=== PATIENT | female | born 1980 | race Caucasian/White ===

== ENCOUNTER → 2020-08-13 | Outpatient (CLI) | payer OTHER | END | disposition home or self-care (01) | LOC: LABWHC1 08:49 | PROVIDERS: ATTEND Family Medicine | DX: Z03.818 Encounter for observation for suspected exposure to other biological agents ruled out (principal) | CPT/HCPCS: U0003; C9803 ==

== ENCOUNTER 2024-10-21 21:30 | Emergency (ER) | payer OTHER ==
[2024-10-21 21:35] VITALS: RESP 16
[2024-10-21] MEDS: KETOROLAC 15 MG/ML 1 ML VIAL IM STA (22:12)
[2024-10-21] MEDS: methocarbamoL 750 MG TAB PO STA (22:34)
[2024-10-21 22:52] LABS: Appearance,Urine Clear (Clear); Bilirubin,Urine Negative (Negative); Blood,Urine Negative (Negative); Color,Urine Light Yellow; Glucose,Urine (UA) Negative (Negative); Ketones,Urine Negative (Negative); Leukocyte Esterase,Urine Trace (Negative); Mucus,Urine Rare /hpf; Nitrite,Urine Negative (Negative); PH, Urine 5.5 (5.0-8.0); Protein,Urine Negative (Negative); RBC,Urine 2 /hpf (0-5); Specific Gravity,Urine 1.023 (1.001-1.035); Squamous Epithelial Cell,Urine 5 /hpf (0-4); Urobilinogen,Urine <2.0 mg/dL (<2.0); WBC,Urine 2 /hpf (0-5)
--- NOTE | 2024-10-21 23:29 | ED ---
Back Pain HPI - General Chief Complaint: Back Pain/Injury Stated Complaint: Back Pain Time Seen by Provider: 10/21/24 21:37 Source: patient Limitations: no limitations - History of Present Illness Initial Comments: 44-year-old female presents emergency department reporting low back pain. Patient states for the past 2 to 3 days she has had spasms in her lower back. A dmits to chronic back pain however has had worsening symptoms over the past couple of days. Denies any injuries. No saddle anesthesia. No bowel or bladder incontinence. No fevers. No history of intravenous drug use. Patient has not taken anything at home for her pain. No concern for . 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 Denies any urinary symptoms to include dysuria, hematuria or difficulty voiding. Denies diarrhea, constipation, black or bloody stools. No vaginal bleeding or discharge. No other alleviating, precipitating or modifying factors - Related Data Previous Rx's Medication Instructions Recorded diazePAM [Valium] 5 mg PO Q8H PRN 3 Days #9 tab 10/21/24 Allergies Allergy/AdvReac Type Severity Reaction Status Date / Time No Known Allergies Allergy Verified 10/21/24 21:34 Review of Systems ROS Statement: Those systems with pertinent positive or pertinent negative responses have been documented in the HPI. ROS Other: All systems not noted in ROS Statement are negative. Past Medical History Past Medical History: Thyroid Disorder History of Any Multi-Drug Resistant Organisms: None Reported Additional Past Surgical History / Comment(s): Left kidney donated in 2003 Past Psychological History: Anxiety, Depression Smoking Status: Never smoker Past Alcohol Use History: Occasional Past Drug Use History: Marijuana General Exam Limitations: no limitations General appearance: alert, in no apparent distress Head exam: Present: atraumatic, normocephalic, normal inspection Eye exam: Present: normal appearance, PERRL, EOMI. Absent: scleral icterus, conjunctival injection, periorbital swelling ENT exam: Present: normal exam, mucous membranes moist Neck exam: Present: normal inspection. Absent: tenderness, meningismus, lymphadenopathy Respiratory exam: Present: normal lung sounds bilaterally. Absent: respiratory distress, wheezes, rales, rhonchi, stridor Cardiovascular Exam: Present: regular rate, normal rhythm, normal heart sounds. Absent: systolic murmur, diastolic murmur, rubs, gallop, clicks GI/Abdominal exam: Present: soft, normal bowel sounds. Absent: distended, tenderness, guarding, rebound, rigid Extremities exam: Present: normal inspection, full ROM, normal capillary refill. Absent: tenderness, pedal edema, joint swelling, calf tenderness Back exam: Present: paraspinal tenderness (Bilaterally in the lumbar region) Neurological exam: Present: alert, oriented X3, CN II-XII intact Psychiatric exam: Present: normal affect, normal mood Skin exam: Present: warm, dry, intact, normal color. Absent: rash Course Vital Signs 10/21/24 10/21/24 21:31 23:43 Temperature 97.9 F 97.8 F Pulse Rate 81 78 Respiratory 16 16 Rate Blood Pressure 131/81 128/78 O2 Sat by Pulse 100 99 Oximetry Medical Decision Making - Medical Decision Making Was pt. sent in by a medical professional or institution (, PA, BASE BRANDER, urgent care, hospital, or fci...) When possible be specific @ -No Did you speak to anyone other than the patient for history (EMS, parent, family, police, friend...)? What history was obtained from this source @ -No Did you review nursing and triage notes (agree or disagree)? Why? @ -I reviewed and agree with nursing and triage notes Were old charts reviewed (outside hosp., previous admission, EMS record, old EKG, old radiological studies, urgent care reports/EKG's, fci records)? Report findings @ -No old charts were reviewed Differential Diagnosis (chest pain, altered mental status, abdominal pain women, abdominal pain men, vaginal bleeding, weakness, fever, dyspnea, syncope, headache, dizziness, GI bleed, back pain, seizure, CVA, palpatations, mental health, musculoskeletal)? @ -Differential Back Pain: Strain, zoster, cauda equina syndrome, epidural abscess, vertebral osteomyelitis, discitis, fracture, subluxation, disc herniation, DJD, spinal stenosis, dissection, AAA, pancreatitis, peptic ulcer disease, pyelonephritis, kidney stone, this is not meant to be an all-inclusive list. EKG interpreted by me (3pts min.). @ -Not done X-rays interpreted by me (1pt min.). @ -Yes and demonstrates scoliosis CT interpreted by me (1pt min.). @ -None done U/S interpreted by me (1pt. min.). @ -None done What testing was considered but not performed or refused? (CT, X-rays, U/S, labs)? Why? @ -None What meds were considered but not given or refused? Why? @ -None Did you discuss the management of the patient with other professionals (professionals i.e. , PA, BASE BRANDER, lab, RT, psych nurse, director of social work, surveillance monitor, teacher, debt recovery officer, case checker)? Give summary @ -No Was smoking cessation discussed for >3mins.? @ -No Was critical care preformed (if so, how long)? @ -No Were there social determinants of health that impacted care today? How? (Homelessness, low income, unemployed, alcoholism, drug addiction, transportation, low edu. Level, literacy, decrease access to med. care, [facility], rehab)? @ -No Was there de-escalation of care discussed even if they declined (Discuss DNR or withdrawal of care, Hospice)? DNR status @ -No What co-morbidities impacted this encounter? (DM, HTN, Smoking, COPD, CAD, Cancer, CVA, ARF, Chemo, Hep., AIDS, mental health diagnosis, sleep apnea, morbid obesity)? @ -Single kidney due to donation Was patient admitted / discharged? Hospital course, mention meds given and route, prescriptions, significant lab abnormalities, going to OR and other pertinent info. @ -Upon arrival patient seen and evaluated in room 33. Thorough history and physical exam was performed. Patient was given a dose of Toradol and a Robaxin. X-ray was performed. This is performed due to visible deformity on clinical exam which does demonstrate significant scoliosis. Patient has no red flag symptoms. I did discuss treatment options. Patient would prefer to use Valium for muscle relaxation. I did prescribe this for the patient. She must follow- up with her primary care doctor in 2 to 4 days. I did recommend an MRI of her lumbar spine. I also gave her follow-up information for the orthopedic surgeons in [facility] as I do feel that she may need long-term assistance from them. She is to return for any new or worsening symptoms. Patient was agreeable plan was discharged home in stable condition Undiagnosed new problem with uncertain prognosis? @ -No Drug Therapy requiring intensive monitoring for toxicity (Heparin, Nitro, Insulin, Cardizem)? @ -No Were any procedures done? @ -No Diagnosis/symptom? @ -Acute exacerbation of chronic back pain Acute, or Chronic, or Acute on Chronic? @ -Acute on chronic Uncomplicated (without systemic symptoms) or Complicated (systemic symptoms)? @ -Complicated Side effects of treatment? @ -No Exacerbation, Progression, or Severe Exacerbation? @ -No Poses a threat to life or bodily function? How? (Chest pain, [place], [place], pneumonia, PE, COPD, DKA, ARF, appy, cholecystitis, CVA, Diverticulitis, Homicidal, Suicidal, threat to staff... and all critical care pts) @ -No - Lab Data Lab Results 10/21/24 Range/Units 22:44 Urine Color Light Yellow Urine Appearance Clear (Clear) Urine pH 5.5 (5.0-8.0) Ur Specific Hubbard 1.023 (1.001-1.035) Urine Protein Negative (Negative) Urine Glucose (UA) Negative (Negative) Urine Ketones Negative (Negative) Urine Blood Negative (Negative) Urine Nitrite Negative (Negative) Urine Bilirubin Negative (Negative) Urine Urobilinogen <2.0 (<2.0) mg/dL Ur Leukocyte Esterase Trace H (Negative) Urine RBC 2 (0-5) /hpf Urine WBC 2 (0-5) /hpf Ur Squamous Epith Cells 5 H (0-4) /hpf Urine Mucus Rare H (None) /hpf Disposition Clinical Impression: Chronic back pain Disposition: HOME SELF-CARE Condition: Stable Instructions (If sedation given, give patient instructions): Acute Low Back Pain (ED) Additional Instructions: Please use the Valium as needed for back spasms. Take Tylenol as needed for additional pain. Follow-up with one of the Ortho spine surgeons and return for any new or worsening symptoms Prescriptions: diazePAM [Valium] 5 mg PO Q8H PRN 3 Days #9 tab PRN Reason: Muscle Spasm Is patient prescribed a controlled substance at d/c from ED?: Yes When asked, does pt state using other controlled substances?: No If prescribed controlled substance>3 days was MAPS reviewed?: Prescribed <3 Days Referrals: Erum Dawson MD [Primary Care Provider] - 1-2 days Jose Daniel Benton DO [Doctor of Osteopathic Medicine] - 1-2 days Lindsay Brar DO [Doctor of Osteopathic Medicine] - 1-2 days Time of Disposition: 23:28
[2024-10-21] MEDS: diazePAM 5 MG TAB PO STA (23:38)
[2024-10-21 23:44] VITALS: BP 128/78; PULSE 78; TEMP 97.8
--- NOTE | 2024-10-22 00:32 | XR ---
EXAM: XR Lumbosacral Spine, 3 Views CLINICAL HISTORY: back pain TECHNIQUE: Frontal and lateral views of the lumbar spine and sacrum. COMPARISON: No relevant prior studies available. FINDINGS: Vertebrae: Moderate tissue scoliosis with the apex at L2-3. Associated endplate degenerative changes line the inner curvature. No acute fracture. No spondylolisthesis. Sacrum/coccyx: Unremarkable as visualized. No acute fracture. Soft tissues: Unremarkable. IMPRESSION: History of scoliosis with associated degenerative changes greatest lung the inner curvature.
== END 2024-10-21 23:44 | disposition home or self-care (01) ==
LOC: EC 21:30
DX: G89.29 Other chronic pain (principal); M54.50 Low back pain, unspecified; Z90.5 Acquired absence of kidney
CPT/HCPCS: 81001; 72100; 99284; 96372; J1885

== ENCOUNTER 2025-03-29 17:21 | Emergency (ER) | payer OTHER ==
--- NOTE | 2025-03-29 19:04 | US ---
EXAMINATION TYPE: US venous doppler duplex LE RT DATE OF EXAM: 03/29/2025 6:53 PM COMPARISON: NONE CLINICAL INDICATION: Female, 44 years old with history of pain; Pain intermittently x a couple weeks. No hx of DVT. Patient does not take blood thinners. TECHNIQUE: The lower extremity deep venous system is examined utilizing real time linear array sonog dana with graded compression, color doppler sonography, and spectral doppler. SIDE PERFORMED: Right FINDINGS: VESSELS IMAGED: Common Femoral Vein Deep Femoral Vein Greater Saphenous Vein * Femoral Vein Popliteal Vein Small Saphenous Vein * Proximal Calf Veins (* superficial vessels) Right Leg: No evidence of DVT IMPRESSION: No evidence of deep vein thrombosis of the right lower extremity. [facility], , 03/29/2025 7:02 PM
--- NOTE | 2025-03-29 19:27 | ED ---
General Adult HPI - General Chief complaint: Extremity Problem,Nontraumatic Stated complaint: right leg pain Time Seen by Provider: 03/29/25 17:36 Source: patient, RN notes reviewed Mode of arrival: ambulatory Limitations: no limitations - History of Present Illness Initial comments: 44-year-old female presents to the emergency department for evaluation of right leg pain and swelling. Patient states that this been going on for the past 2 weeks. She notes that it is seem to get worse. She notes that there was an area on her leg that felt like a lump. This prompted her presentation to the emergency department today. She denies any redness to the area. Denies any known fever, chills. She is able to ambulate. - Related Data Previous Rx's Medication Instructions Recorded diazePAM [Valium] 5 mg PO Q8H PRN 3 Days #9 tab 10/21/24 Allergies Allergy/AdvReac Type Severity Reaction Status Date / Time No Known Allergies Allergy Verified 03/29/25 17:32 Review of Systems ROS Statement: Those systems with pertinent positive or pertinent negative responses have been documented in the HPI. ROS Other: All systems not noted in ROS Statement are negative. Past Medical History Past Medical History: Thyroid Disorder History of Any Multi-Drug Resistant Organisms: None Reported Additional Past Surgical History / Comment(s): Left kidney donated in 2003 Past Psychological History: Anxiety, Depression Smoking Status: Never smoker Past Alcohol Use History: Occasional Past Drug Use History: Marijuana General Exam Limitations: no limitations General appearance: alert, in no apparent distress Head exam: Present: atraumatic, normocephalic, normal inspection Eye exam: Present: normal appearance, PERRL, EOMI. Absent: scleral icterus, conjunctival injection, periorbital swelling ENT exam: Present: normal exam, mucous membranes moist Respiratory exam: Present: normal lung sounds bilaterally. Absent: respiratory distress, wheezes, rales, rhonchi, stridor Cardiovascular Exam: Present: regular rate, normal rhythm, normal heart sounds. Absent: systolic murmur, diastolic murmur, rubs, gallop, clicks Extremities exam: Present: normal inspection, full ROM, normal capillary refill. Absent: tenderness, pedal edema, joint swelling, calf tenderness Back exam: Present: normal inspection Neurological exam: Present: alert, oriented X3 Psychiatric exam: Present: normal affect, normal mood Skin exam: Present: warm, dry, intact, normal color. Absent: rash Course Vital Signs 03/29/25 03/29/25 17:29 19:33 Temperature 98.2 F 98.6 F Pulse Rate 100 103 H Respiratory 16 18 Rate Blood Pressure 131/77 117/75 O2 Sat by Pulse 99 97 Oximetry Medical Decision Making - Medical Decision Making Was pt. sent in by a medical professional or institution (, PA, WET MACHINE OPERATOR, urgent care, hospital, or assisted...) When possible be specific @ -No Did you speak to anyone other than the patient for history (EMS, parent, family, police, friend...)? What history was obtained from this source @ -No Did you review nursing and triage notes (agree or disagree)? Why? @ -I reviewed and agree with nursing and triage notes Were old charts reviewed (outside hosp., previous admission, EMS record, old EKG, old radiological studies, urgent care reports/EKG's, assisted records)? Report findings @ -No old charts were reviewed Differential Diagnosis (chest pain, altered mental status, abdominal pain women, abdominal pain men, vaginal bleeding, weakness, fever, dyspnea, syncope, headache, dizziness, GI bleed, back pain, seizure, CVA, palpatations, mental health, musculoskeletal)? @ -Differential Musculoskeletal Muscular strain, contusion, ligament sprain, fracture, arthritis, septic arthritis, bursitis, cellulitis, muscle spasm, nerve compression, DVT, arterial occlusion, herpes zoster, electrolyte abnormality, tumor.... This is not meant to be in all inclusive list EKG interpreted by me (3pts min.). @ -None X-rays interpreted by me (1pt min.). @ -None done CT interpreted by me (1pt min.). @ -None done U/S interpreted by me (1pt. min.). @ -Ultrasound of the right lower extremity shows no evidence of DVT What testing was considered but not performed or refused? (CT, X-rays, U/S, labs)? Why? @ -None What meds were considered but not given or refused? Why? @ -None Did you discuss the management of the patient with other professionals (professionals i.e. , PA, WET MACHINE OPERATOR, lab, RT, psych nurse, social sciences lecturer, pipe bowls paint trimmer, teacher, quality officer, case packer and sealer)? Give summary @ -No Was smoking cessation discussed for >3mins.? @ -No Was critical care preformed (if so, how long)? @ -No Were there social determinants of health that impacted care today? How? (Homelessness, low income, unemployed, alcoholism, drug addiction, transportation, low edu. Level, literacy, decrease access to med. care, snf, rehab)? @ -No Was there de-escalation of care discussed even if they declined (Discuss DNR or withdrawal of care, Hospice)? DNR status @ -No What co-morbidities impacted this encounter? (DM, HTN, Smoking, COPD, CAD, Cancer, CVA, ARF, Chemo, Hep., AIDS, mental health diagnosis, sleep apnea, morbid obesity)? @ -None Was patient admitted / discharged? Hospital course, mention meds given and route, prescriptions, significant lab abnormalities, going to OR and other pertinent info. @ -Discharge. Patient presented emergency department for evaluation of atraumatic right leg pain. Ultrasound of lower extremity obtained revealing no evidence of DVT. Patient will be discharged home advised symptomatic treatment at home. She is understanding agreeable to plan. Patient stable at time of discharge. Case discussed with Dr. Jennings. Undiagnosed new problem with uncertain prognosis? @ -No Drug Therapy requiring intensive monitoring for toxicity (Heparin, Nitro, Insulin, Cardizem)? @ -No Were any procedures done? @ -No Diagnosis/symptom? @ -Right leg pain Acute, or Chronic, or Acute on Chronic? @ -Acute Uncomplicated (without systemic symptoms) or Complicated (systemic symptoms)? @ -Uncomplicated Side effects of treatment? @ -No Exacerbation, Progression, or Severe Exacerbation? @ -No Poses a threat to life or bodily function? How? (Chest pain, [place], [place], pneumonia, PE, COPD, DKA, ARF, appy, cholecystitis, CVA, Diverticulitis, Homicidal, Suicidal, threat to staff... and all critical care pts) @ -No Disposition Clinical Impression: Leg pain Disposition: HOME SELF-CARE Condition: Stable Instructions (If sedation given, give patient instructions): Leg Pain (ED) Additional Instructions: Please follow up with your doctor. Return to the emergency department for new or worsening symptoms. Is patient prescribed a controlled substance at d/c from ED?: No Referrals: Erum Dawson MD [Primary Care Provider] - 1-2 days
[2025-03-29 19:38] VITALS: BP 117/75; PULSE 103; RESP 18; TEMP 98.6
== END 2025-03-29 19:38 | disposition home or self-care (01) ==
LOC: EC 17:21
DX: M79.604 Pain in right leg (principal)
CPT/HCPCS: 99283

== ENCOUNTER → 2025-05-28 | Outpatient (CLI) | payer OTHER ==
--- NOTE | 2025-05-28 14:08 | MR ---
INDICATION: Patient age:Female; 44 years old; Reason for study: M47.26,M40.03,M54.50; [facility]. COMPARISONS: Lumbar spine radiographs 04/27/2025, 10/21/2024. TECHNIQUE: Multi planar, multi sequence imaging was performed utilizing: T1-weighted, T2-weighted, a nd turbo inversion recovery imaging of the lumbar spine. The patient was not given contrast. FINDINGS: The lumbar vertebral bodies do have preserved heights. Grade 1 retrolisthesis of L4 on L5. Moderate dextro convex curvature of the lumbar spine with apex at L2-L3. Anterior osteophytosis at L 1-L3. Type I Modic changes involving the endplates around the L2-L3 disc. Multilevel disc desiccation is present. The conus medullaris and the distal spinal cord do appear unremarkable with regards to their signal intensity and morphology. T12-L1:No significant disc pathology is identified. The spinal canal and neural foramen are patent. L1-L2: No significant disc pathology is identified. The spinal canal and neural foramen are patent. L2-L3: Eccentric left broad-based disc bulge. No significant spinal canal stenosis. Bilateral facet arthropathy with left greater than right. Right neural foramen is patent. Mild left neural foraminal stenosis. L3-L4: Broad-based disc bulge without significant spinal canal stenosis. Bilateral facet arthropathy . No significant neural foraminal stenosis. L4-L5: Minimal broad-based disc bulge. No spinal canal stenosis. Bilateral facet arthropathy with rig ht greater the left. Mild left neural from stenosis. The right neural foramen is patent. L5-S1: The intervertebral disc appears round on its contour posteriorly without significant mass eff ect upon the thecal sac. No spinal canal stenosis. Bilateral facet arthropathy with right greater diamond n left. Mild left neural foraminal stenosis. The right neural foramen is patent. 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 IMPRESSION: 1. No definitive evidence for disc herniation or significant spinal canal stenosis. 2. Multilevel disc degeneration with associated osteoarthritic changes. 3. Moderate dextroscoliosis of the lumbar spine. [facility], , 05/28/2025 2:06 PM
== END | disposition home or self-care (01) ==
LOC: RADMRIMAIN 12:56
PROVIDERS: ATTEND Orthopaedic Surgery
DX: M47.26 Other spondylosis with radiculopathy, lumbar region (principal); M40.03 Postural kyphosis, cervicothoracic region; M51.16 Intervertebral disc disorders with radiculopathy, lumbar region
CPT/HCPCS: 72148

== ENCOUNTER → 2025-06-15 | Outpatient (CLI) | payer OTHER ==
--- NOTE | 2025-06-15 13:56 | MR ---
INDICATION: Patient age:Female; 44 years old; Reason for study: M47.812,M54.2,G44.86; [facility]. COMPARISON: Cervical spine radiographs 05/14/2025. TECHNIQUE: Multi planar, multi sequence imaging was performed of the cervical spine. No Gadolinium wa s given. FINDINGS: Alignment: The cervical vertebral bodies have preserved heights. Grade 1 anterolisthesis of C2 on C3. Grade 1 retrolisthesis of C3 on C4 and C6 on C7. Bones: Prominent anterior osteophytosis at C6-C7. Cord: The spinal cord is unremarkable with regards to their signal intensity and morphology. Discs: Multilevel disc desiccation is present. C2-C3: Grade 1 anterolisthesis uncovering the disc. No significant disc pathology. Right facet arthro adrian. No spinal canal or neural foraminal stenosis. C3-C4: Grade 1 retrolisthesis. Mild broad-based disc bulge. No significant effacement of the anterior thecal sac. No spinal canal stenosis. No significant neural foraminal stenosis. C4-C5: No significant disc pathology. The spinal canal is patent. No neural foraminal stenosis. C5-C6: Mild broad-based disc bulge. No significant effacement of anterior thecal sac. No spinal canal stenosis. No neural foraminal stenosis. C6-C7: Mild broad-based disc bulge without significant effacement of the anterior thecal sac. Uncover tebral joint hypertrophy. The right neural foramen is patent. Mild left neural foraminal stenosis. C7-T1: No significant disc pathology. The spinal canal is patent. No neural foraminal stenosis. Other: Large T2 heterogenous hyperintense well-circumscribed lesion within the right thyroid region m easuring 2.8 x 2.4 x 3.7 cm in AP, TV, CC dimensions. Slight deviation of the trachea to the left. IMPRESSION: 1. No evidence for disc herniation or significant spinal canal stenosis. 2. Multilevel disc degeneration with associated osteoarthritic changes. 3. Grade 1 anterolisthesis of C2 on C3. Grade 1 retrolisthesis of C3 on C4 and C6 on C7. 4. Heterogenous right thyroid region 3.7 cm lesion. May represent a dominant thyroid nodule. Further evaluation with ultrasound is recommended. [facility], , 06/15/2025 1:54 PM
== END | disposition home or self-care (01) ==
LOC: RADMRIMAIN 12:46
PROVIDERS: ATTEND Orthopaedic Surgery
DX: M50.323 Other cervical disc degeneration at C6-C7 level (principal); M47.812 Spondylosis without myelopathy or radiculopathy, cervical region; M43.12 Spondylolisthesis, cervical region
CPT/HCPCS: 72141